=== PATIENT | male | born 1970 | race Caucasian/White ===

== ENCOUNTER → 2017-10-14 10:04 | Outpatient (CLI) | payer BC, SELFPAY ==
--- NOTE | 2017-10-14 08:04 | PCM.CR.ITP ---
General Information - General Information Admitting Diagnosis: PCI - Education/Goals Barriers to Learning: None Individual Counseling: Initial Assessment: Nicotine/Smoking, Abnormal Cholesterol Levels, Overweight/Obesity Cardiac Rehabilitation Goals: 1. Maintain the individual as the primary focus of care. 2. To improve the patient's quality of life. 3. Identification of cardiac risk factors and provide cardiac risk factor management. 4. Enhance the psychosocial status of the patient. 5. Reconditioning enough to allow the patient to resume customary activities. 6. Control symptoms of cardiac disease Scale for measuring improvement of personal goals: Enter appropriate number in Comments. 2 = Unchanged. 3 = Slightly Better. 4 = Moderate Improvement. 5 = Met my Goal Personal Goals: Initial Assessment: Improve knowledge of cardiac disease, Control risk factors (learn risk factor modification) Nutrition - Initial Assessment - Program Goals Nutrition Program Goals: LDL <70. Total Cholesterol <200. HDL >45. Triglycerides <150. HgbA1C <7%. BMI <25 - Visit Date of Assessment:: 10/14/17 - Stages of Change Stages of Change:: Action - Diabetes Diabetes:: No - Weight Management Height: 1.75 m Weight:: 80.739 kg Weight Goal (kg):: 72.575 kg Goal % Body Fat:: 24 - Intervention Referral to dietitian:: No Referral to Diabetic Clinic:: No Will attend diet classes:: Yes - Education Gave educational materials for:: Healthy eating Tobacco - Initial Assessment - Program Goals Tobacco Program Goals: Complete smoking cessation. Attend education classes. Improve Knowledge Test score - Stage of Change Stages of Change:: Action - Learning Barriers Learning Barriers: Ready to Learn - Family Support Do you have family support?: Yes - Tobacco Use Tobacco Use: Cigarettes How long ago did you quit using tobacco products?: Less than 6 months ago How many cigarettes do you smoke per day?: 20 Years Smokin Do you use smokeless tobacco?: No - Intervention Smoking Cessation Referral:: Yes Individual Education/Counseling:: Yes Education Schedule Given:: Yes - Education Gave educational material for:: Tobacco triggers, Coronary artery disease, Risk factors, Sexuality, Medical compliance, Cardiac A&P, Angina signs & symptoms Psychosocial - Initial Assess - Target Goals Target Goals: Assess presence or absence of depression. Using a valid screening tool, maximizes coping skills. Positive support system - Stages of Change Stages of Change:: Action - Psychosocial Test Tool Used:: HANDS Depression Questionnaire Self-reported stress:: no Total Mood Screening Score:: 2 Self-Efficacy Score:: 9 - Intervention PS - Interventions: Yes Attend Stress Management Classes, Yes Uses Stress Management Skills, No Referral to Mental Health, No Referral to [facility] Case Management, No Referral to Physician - Education Gave educational materials for:: Coping techniques, Signs & symptoms of depression, Stress management, Relaxation techniques - Patient/Program Goal Preventative Medication(s):: Aspirin, CORNEL inhibitor, Clopidogrel, Beta kusum, Statin/lipid - Assistive Devices Assistive Devices:: None Fall Risk Assessed:: Yes Patient Health Questionnaire Initial Assessment 1. Little interest or pleasure in doing things: Not at all 2. Feeling down, depressed, or hopeless: Not at all 3. Trouble falling or staying asleep, or sleeping too much: Not at all 4. Feeling tired or having little energy: Not at all 5. Poor appetite or overeating: Not at all 6. Feeling bad about yourself -- or that you are a failure or have let yourself or your family down: Not at all 7. Trouble concentrating on things, such as reading the newspaper or watching television: Several days 8. Moving or speaking so slowly that other people could have noticed. Or the opposite - being so fidgety or restless that you have been moving around a lot more than usual: Several days 9. Thoughts that you would be better off , or of hurting yourself in some way: Not at all How difficult have these problems made it for you to do your work, take care of things at home, or get along with other people?: Not difficult at all Total Score: 2 NEIL-Q SV Test - Statements CAD is a disease of the arteries in the heart: True Examples of risk factors for heart disease: False Angina is chest pain or discomfort: True The benefits of resistance training include: I Don't Know Eating more meat and dairy products: True Anti-platelet medications such as aspirin are important: True The only effective way to manage stress: True An exercise warm-up slowly increases heart rate: True Prepared, processed foods usually have high sodium: I Don't Know Depression is common after a heart attack: True The statin medications lower cholesterol: True To control blood pressure, lower the amount of sodium: True If someone gets chest discomfort during walking: True Transfats are partially hydrogenated vegetable oils: I Don't Know Sleep apnea that is not treated increases the risk: I Don't Know To control cholesterol, one should become a vegetarian: False Someone knows if he/she is exercising at the right level: True Diabetes cannot be prevented with exercise & health eating: False Stress is a large risk for heart attack: True A diet that can help lower blood pressure is rich in: True - Total Score Total Correct Responses: 11 Self-Efficacy Initial Assessment We would like to know how confident you are in doing certain activities. Please select your confidence level for:: Select your confidence level for the following using the scale 1-10 where 1 is not at all confident and 10 is totally confident. Your score is the average of all 6 responses. Fatigue: How confident are you that you can keep the fatigue caused by your disease from interfering with the things you want to do? Select Number: 6 Physical Discomfort or Pain: How confident are you that you can keep the physical discomfort or pain of your disease from interfering with the things you want to do? Select Number: 9 Emotional Distress: How confident are you that you can keep the emotional distress caused by your disease from interfering with the things you want to do? Select Number: 10 Other Symptoms or Health Problems: How confident are you that you can keep other symptoms or health problems from interfering with the things you want to do? Select Number: 10 Different Tasks and Activities: How confident are you that you can do the different tasks and activities needed to manage your health condition so as to reduce your need to see a doctor? Select Number: 9 Medication: How confident are you that you can do things other than just taking medication to reduce how much your illness affects your everyday life? Select Number: 10 Total Score:: 9 Nutrition Survey - Nutrition Survey Instructions Scoring Instructions: Scoring is as follows: Yes = 1 points. No = 0 point. Patient score that is >/=12 is considered to be at potential nutritional risk and could benefit from a referral to a registered dietitian. - Nutrition Survey Initial Have you lost >10 lbs over the past 2 months without trying?: No Are you following a special diet at home for diabetes, low fat, or low salt?: No Are you interested in meeting with a dietitian for help understanding your diet?: No Do you eat less than 3 meals a day?: Yes Do you eat fatty meats (lino, sausage, ribs, etc), fried foods, desserts, large amounts of salad dressings, margarine, butter, or cheese most days?: Yes Do you have food allergies? [Enter types in comment field]: No Do you eat in restaurants more than 3 times a week?: No Do you season food with salt, seasoning salt, or garlic salt?: Yes Do you used canned, boxed, frozen meals, or soups, seasoning packets?: Yes Total Score:: 4
--- NOTE | 2017-10-14 08:05 | PCM.CR.HP2 ---
CR - History & Physical - General Arrival date:: 10/14/17 Arrival time:: 08:05 Date of Referral:: 10/14/17 Date of CR Evaluation:: 10/14/17 Referring Physician: Dr. Hackett Primary Diagnosis: PCI - History of Present Cardiac Event Onset Date: Enter Onset Date of cardiac illnesses in Comment field below Current stable Angina Pectoris:: No Acute Myocardial Infarction within 12 months:: Yes Coronary Artery Bypass Graft:: No Heart valve replacement or repair:: No PTCA or coronary stenting:: Yes - 09/23/17 Heart or Heart-Lung Transplant:: No Heart Failure EF <35%:: No Type of Symptoms:: Sharp left chest pain. Interventions with present event:: PCI with stent. Were there any complications?: no - Medications Home Medications: Ambulatory Orders Medication Instructions Recorded Aspirin [Lo-Dose Aspirin EC] 81 mg PO DAILY 10/14/17 Atorvastatin Calcium [Lipitor] 40 mg PO QHS 10/14/17 Isosorbide Mononitrate [Imdur] 120 mg PO DAILY 10/14/17 Metoprolol Tartrate [Lopressor 50 mg PO BID 10/14/17 (Beta Cici)] Nicotine [Nicotine Patch] 1 each TD DAILY 10/14/17 Nitroglycerin [Nitrostat] 0.4 mg SL PRN PRN 10/14/17 Ranolazine [Ranexa] 500 mg PO BID 10/14/17 Ticagrelor [Brilinta] 90 mg PO BID 10/14/17 - Allergies Allergies/Adverse Reactions: Allergies No Known Allergies Allergy (Verified 11/09/15 15:42) - Sleep Disorder Evaluation Hx of Sleep Apnea: No Do you snore loudly (louder than talking or can be heard through closed doors)?: No Do you often feel tired/ fatigued/ sleepy during daytime?: No Has anyone observed you stop breathing during sleep?: No History of Hypertension (for STOP score): No STOP Results: Negative Advanced Directives - Advanced Directives Power of Scientific Programmer: No Living Will: No Advance Directives Information Provided: Yes Advance Directives on File: No DNR Order?:: No Past Medical History - Past Surgical History Surgical History: no surgical history - Family History Summary Family History: Family History (Last Updated 10/14/17 @ 08:16 by Alexander Hodge RN) Other father Social History - Smoking History Smoking Status: Former smoker - quit 09/23/17, also is working with insurance smoking cessation person daily. Years Smokin Packs Smoked per Day: 1 Hx Smoking Cessation Date: 09/23/17 Hx Smoking Exposure: Yes - at home and work, but leaves if someone is smoking. - Alcohol Use Alcohol Usage: No - Substance Abuse Hx Substance Use: No - Occupation Occupation (List type of work in comments):: Employed Hours worked per day:: 40 - lifts ~ 35 lbs at work Returned to work on:: 09/26/17 - Hobbies, Recreation, Social Activities Hobbies: None Recreational Activities: I am able to engage in all my recreational activities Social Environment - Status Marital Status: - Current Living Arrangements Living Environment:: Spouse - Children How many children do you have?: 2 Do any of your children live nearby?: Yes - Safety Do you feel safe in your surroundings?: Yes - Assistance Do you need any assistance at home?: no Review of Systems - Review of Systems Hints: Right click = Denies (Slash). Left click = Reports ([place]) Review of Present Symptoms: Reports: Appetite - Normal, Appetite - Special Diet - cardiac, Sleep - Normal. Denies: Shortness of Breath at Rest, Shortness of Breath with Exertion, PVD, Operative Discomfort, Angina, Wound Healing, Dizziness/Lightheadedness, Fatigue, Heart Arrhythmia/Irregularities, Sexual Changes - Pain Is Patient Pain Free?: Yes Risk Factor Assessment - Chief Complaint Chief Complaint: PCI - Pulse Pulse Rate: 72 Pulse Rhythm: Regular - Hypertension Blood Pressure Sitting - Right Arm: 110/72 Blood Pressure Sitting - Left Arm: 118/60 - Diabetes Nutrition Referral for Diabetes: No - Obesity Height: 1.75 m Weight:: 80.739 kg Weight in Pounds: 178.0 lbs Weight Source: Stated by Patient Body Mass Index (BMI): 26.2 Desired Body Weight: 160 Realistic Weight Goal (Loss of 1-2 lbs/week): 160 Nutritional Referral for Obesity: No - Physical Inactivity Physical Inactivity: Reg Exercise 30 min/day, Physically demanding job, Recreational activity - Risk Stratification Risk Guidelines: Lowest Risk: Risk Factor for Diabetes, Risk Factor for Hypertension, Risk Factor for Sedentary Lifestyle, Risk Factor for Depression, Moderate Risk: Risk Factor for Dyslipidemia, Risk Factor for Obesity, Highest Risk: Risk Factor for Smoking - For Smoking Smoking Risk Guidelines: Smoking Low Risk: None or quit greater than 6 months ago. Smoking Moderate Risk: Smoker or quit 6 months or less ago. Smoking High Risk: Smoker - For Dyslipidemia Dyslipidemia Risk Guidelines: Low Risk: Moderate Risk: High Risk: 15-25% fat 25.1-29% fat >/= 30% fat. <7% sat fat 7-9% sat fat >9% sat fat. <150 mg chol 150-299 mg chol >/= 300 mg chol. LDL <100 LDL 100-129 LDL >/= 130. Chol/HDL ratio <5.0 Chol/HDL ratio 5.0-6.0 Chol/HDL ratio >6.0. Triglycerides <100 Triglycerides 100-149 Triglycerides >/= 150 - For Diabetes Mellitus Diabetes Risk Guidelines: Diabetes Low Risk: HgA1c <6.5% and/or FBG <120. Diabetes Moderate Risk: HgA1c 6.6-7.9% and/or FBG 120-180. Diabetes High Risk: HgA1c >/= 8% and/or FBG >180 - For Obesity/Overweight Obesity/Overweight Risk Guidelines: Obesity Low Risk: BMI <25.0. Obesity Moderate Risk: BMI 25-29.9. Obesity High Risk: BMI >/= 30.0 - For Hypertension Hypertension Risk Guidelines: Hypertension Low Risk: Systolic <120 and Diastolic <80. Hypertension Moderate Risk: Systolic 120-139 and Diastolic 80-89. Hypertension High Risk: Systolic >/= 140 and Diastolic >/= 90 - For Sedentary Lifestyle Sedentary Lifestyle Risk Guidelines: Sedentary Lifestyle Low Risk: >/= 1,500 kcal/week. Sedentary Lifestyle Moderate Risk: 700-1,499 kcal/week. Sedentary Lifestyle High Risk: < 700 kcal/week - For Depression Depression Risk Guidelines: Depression Low Risk: Not clinically depressed. Depression Moderate Risk: Mildly depressed. Depression High Risk: Clinically depressed - Family History Family History: Family History (Last Updated 10/14/17 @ 08:16 by Alexander Hodge RN) Other father Motivation - Motivation to Participate On a scale of 1 to 10, how prepared are you to commit to attending program?: 10
[2017-10-14 09:12] VITALS: BP 110/72; BP 118/60; PULSE 72; BMI 26.2
== END ==
PROVIDERS: Family Provider Nurse Practitioner Family; PCP Nurse Practitioner Family
DX: Z95.5 Presence of coronary angioplasty implant and graft (principal)

== ENCOUNTER 2017-10-17 10:47 | Outpatient (RCR) | payer BC, SELFPAY | END 2017-10-21 23:59 | LOC: CR 10:47 | PROVIDERS: Family Provider Nurse Practitioner Family; PCP Nurse Practitioner Family | DX: Z95.5 Presence of coronary angioplasty implant and graft (principal) ==

== ENCOUNTER 2017-10-26 10:05 | Outpatient (RCR) | payer BC, SELFPAY | END 2017-11-20 23:59 | LOC: CR 10:05 | PROVIDERS: Family Provider Nurse Practitioner Family; PCP Nurse Practitioner Family | DX: Z95.5 Presence of coronary angioplasty implant and graft (principal) | CPT/HCPCS: 93798 ==

== ENCOUNTER 2019-01-28 19:42 | Emergency (ER) | payer BC, SELFPAY ==
[2019-01-28 19:44] VITALS: BP 111/78; PULSE 103; PULSE 105; RESP 15; RESP 17; TEMP 36.4; O2SAT 96; BMI 28.1
--- NOTE | 2019-01-28 19:58 | ED.VISSUMM ---
- ER Visit Summary Date of Service: 01/28/19 Chief Complaint: Forearm skin lesion History of Present Illness: The patient is a 49 M smoker history of coronary disease with cardiac stent. States he has a mole or something on his left forearm he has no idea how long it is been there is 1 to make sure without an abscess. Denies fever or chills. No red streaks. No drainage. No trauma. Physical Examination: Middle-aged male no acute distress vital signs stable afebrile. HEENT exam unremarkable. Spelt medical. Lungs clear to auscultation. Heart regular rhythm no murmur. Abdomen soft nontender. Extremities moves all 4. Neurovascular intact. No edema. The dorsum of his left forearm midportion there are 2 skin lesions that he had a scar tissue possibly a mole or granulomatous tissue. It is not an abscess. It is not a cyst. It is not fluctuant. There is no drainage or discharge. There is no lymphangitic streaking. There is no axillary lymphadenopathy. It is not tender. It is firm. Left hand is neurovascular intact. His left forearm from welding. Test Results: None Emergency Department Course and Treatment: This appears to be mole or scar tissue. There is nothing to drain at this time. Is not an abscess. Is not infected. Explained to the patient he needs to follow-up with a superintendent of generation and they can diagnosis and or biopsy it or remove it. But that does not need to be done in the emergency department. Treatment Plan: Follow-up with superintendent of generation. Stop smoking. Disposition: Discharge Impression: Left forearm skin lesion uncertain etiology This note was generated with [employer] dictation software. It may contain incorrect words, spelling, and punctuation that were not noted in review of the chart prior to signing ED Disposition - Plan for ED Patient: Referrals: Cesar Chin, KATIA-C [Primary Care Provider] -
--- NOTE | 2019-01-28 20:01 | DCINST.ED_ITS ---
ED Disposition - Plan for ED Patient: Disposition: Home or Assisted Living Referrals: Cesar Chin, KATIA-C [Primary Care Provider] - As Needed Lucretia Cuevas [NON-STAFF] - As soon as possible Additional Instructions: Call and follow-up with the used car make ready worker Dr. Lucretia Cuevas. She can evaluate your left arm make a diagnosis and/or remove those from your forearm or do a skin biopsy. Stop smoking.
== END 2019-01-28 20:15 | disposition home or self-care (01) ==
LOC: ED 20:10
PROVIDERS: Emergency Provider Emergency Medicine; Family Provider Nurse Practitioner Family; PCP Nurse Practitioner Family
DX: L98.9 Disorder of the skin and subcutaneous tissue, unspecified (principal); F17.200 Nicotine dependence, unspecified, uncomplicated; I25.10 Atherosclerotic heart disease of native coronary artery without angina pectoris; Z95.5 Presence of coronary angioplasty implant and graft; Z79.82 Long term (current) use of aspirin
CPT/HCPCS: 99282

== ENCOUNTER 2019-06-19 23:12 | Emergency (ER) | payer BC, SELFPAY ==
[2019-06-19 23:14] VITALS: BP 115/78; PULSE 67; RESP 20; TEMP 36.7; O2SAT 98; BMI 24.0
--- NOTE | 2019-06-19 23:29 | ED.DCSUM_ITS ---
History of Present Illness Chief Complaint: Mental Health Informant: Patient, Hha, - - [facility] deputy Narrative: Patient arrives via EMS and escorted by [facility]'s office. [place] slip was provided by the [facility]'s department. Patient apparently was sending messages to family member stating that he was done. He was making statements he went to go see his mom who is . He apparently threw away all his medication stating that this would just help him be done. Patient now states that he made statements that he went to go see his mom's grave, not go see his mom. He does admit to throwing his medication away earlier today. He does admit to drinking today. Patient states that he was seen by the counseling center couple months ago for suicidal ideation. They started him on some medication. This is one of the medications that he threw away earlier today. - Past Medical History (1) Hypertension Status: Chronic (2) Myocardial infarction Status: Chronic (3) H/O heart artery stent Status: Chronic (4) COPD (chronic obstructive pulmonary disease) Status: Chronic (5) GERD (gastroesophageal reflux disease) Status: Chronic (6) Depression Status: Chronic Past Medical History - Allergies and Home Meds Allergies/Adverse Reactions: Allergies No Known Allergies Allergy (Verified 06/19/19 23:14) Primary Care Physician: Cesar Chin NP-C [Primary Care Provider] - Prior records reviewed: Yes Surgical History: no surgical history Lives: Alone, - - Currently staying alone at a local motel Smoking Status: Current every day smoker Review of Systems General: Denies: Chills, Fever Eyes: Denies: Visual changes - bilaterally ENT: Denies: Bilateral ear pain Cardiovascular: Denies: Chest pain Respiratory: Denies: Dyspnea, Cough Gastrointestinal: Denies: Abdominal pain, Nausea, Vomiting, Diarrhea Genitourinary: Denies: Dysuria Musculoskeletal: Denies: Extremity Pain Skin: Denies: Rash Neurological: Denies: Headache Psych: Reports: Depression Hematologic: Denies: Easy bruising, Easy bleeding Allergy: Denies: Uticaria Physical Exam Vital Signs/Narrative: Vital Signs Temp Pulse Resp BP Pulse Ox 06/19/19 23:14 98.0 F 67 20 H 115/78 98 Inital Vital Signs reviewed: Yes General: Well nourished, Well developed Head: Normocephalic ENT: Moist mucous membranes Neck: Supple Cardiovascular: Regular rate, Regular rhythm Respiratory: No distress, CTA bilaterally Abdomen: Soft, Nontender, Normal bowel sounds Extremities: Nontender Skin: Normal color Neurological: Alert, Oriented x3 Psychological: - - Patient currently denies suicidal plan. He states that he would never actually hurt himself. He does admit to having suicidal thoughts in the past and had been on medication. Diagnostic/Tx/Re-eval Laboratory Results 06/19/19 06/19/19 06/19/19 23:40 23:40 23:40 WBC 9.3 RBC 5.44 Hgb 16.7 H Hct 47.9 MCV 88.1 MCH 30.7 MCHC 34.9 RDW Std Deviation 42.1 RDW Coeff of Brie 13.1 Plt Count 198 MPV 9.6 Immature Gran % (Auto) 0.300 Neut % (Auto) 53.6 Lymph % (Auto) 34.4 [place]cock % (Auto) 9.6 Eos % (Auto) 1.3 Baso % (Auto) 0.8 Absolute Neuts (auto) 5.0 Absolute Lymphs (auto) 3.18 Nucleated RBC % 0 Sodium 140 Potassium 3.2 L Chloride 109 H Carbon Dioxide 24.0 Anion Gap 7 BUN 5 L Creatinine 0.77 Estim Creat Clear Calc 114.77 Est GFR (MDRD) Af Amer 137 Est GFR (MDRD) Non-Af 114 BUN/Creatinine Ratio 6.5 L Glucose 111 H Calcium 8.4 L Urine Opiates Screen Urine Methadone Screen Ur Barbiturates Screen Ur Phencyclidine Scrn Ur Amphetamines Screen U Methamphetamin-MDMA U Benzodiazepines Scrn Urine Cocaine Screen U Cannabinoids Screen Ur Drug Screen Comment Ethyl Alcohol 208.0 06/20/19 06/20/19 05:07 05:07 WBC RBC Hgb Hct MCV MCH MCHC RDW Std Deviation RDW Coeff of Brie Plt Count MPV Immature Gran % (Auto) Neut % (Auto) Lymph % (Auto) Glasscock % (Auto) Eos % (Auto) Baso % (Auto) Absolute Neuts (auto) Absolute Lymphs (auto) Nucleated RBC % Sodium Potassium Chloride Carbon Dioxide Anion Gap BUN Creatinine Estim Creat Clear Calc Est GFR (MDRD) Af Amer Est GFR (MDRD) Non-Af BUN/Creatinine Ratio Glucose Calcium Urine Opiates Screen NEGATIVE Urine Methadone Screen NEGATIVE Ur Barbiturates Screen NEGATIVE Ur Phencyclidine Scrn NEGATIVE Ur Amphetamines Screen NEGATIVE U Methamphetamin-MDMA NEGATIVE U Benzodiazepines Scrn NEGATIVE Urine Cocaine Screen NEGATIVE U Cannabinoids Screen NEGATIVE Ur Drug Screen Comment Ethyl Alcohol 124.0 - Medical Decision Making Patient denies suicidal ideation to me, however does admit to throwing away all of his medications. He is known to the counseling center. We will have the patient speak with crisis. Patient's alcohol level has been repeated. He is metabolizing at 15/h. Another repeat alcohol level will be drawn at 730 and crisis will be called at that time pending alcohol is less than 100. ED Disposition - Plan for ED Patient: Diagnosis: Alcohol intoxication Referrals: Cesar Chin NP-C [Primary Care Provider] -
[2019-06-19 23:45] LABS: Absolute Lymphocyte Count 3.18 X10^3/uL (0.83-4.51); Basophil# 0.07 X10^3/uL; Basophil% 0.8 % (0-1); Eosinophil# 0.12 X10^3/uL; Eosinophils% 1.3 % (0-5); Hematocrit 47.9 % (40-54); Hemoglobin 16.7 g/dL (13.0-16.5); Lymphocyte # 3.18 X10^3/ul (4.0); Lymphocyte % 34.4 % (19-41); Mean Corp Hgb Conc 34.9 g/dL (32-36); Mean Corpuscular Hgb 30.7 pg (27.0-32.0); Mean Corpuscular Volume 88.1 fL (80-94); Mean Platelet Vol. 9.6 fl (6.2-12.0); Monocyte# 0.89 X10^3/uL; Monocyte% 9.6 % (0-10); NRBC Flagged by Analyzer 0 % (0-5); Neutrophil # 4.96 X10^3/uL (2.7-7.7); Neutrophil % 53.6 % (47-70); Platelet Count 198 K/mm3 (150-450); RBC Distribution Width CV 13.1 % (11.6-14.6); RBC Distribution Width SD 42.1 fl (35.1-43.9); Red Blood Count 5.44 M/mm3 (4.6-6.2); White Blood Count 9.3 K/mm3 (4.4-11.0)
[2019-06-19 23:58] LABS: Anion Gap 7 (5-15); BUN 5 mg/dL (7-18); BUN/Creat Ratio 6.5 RATIO (10-20); Calcium,Total 8.4 mg/dL (8.5-10.1); Chloride 109 mmol/L (98-107); Creatinine, Serum 0.77 mg/dL (0.70-1.30); EST Glomerular Filtration Rate 114 mL/min (>60); Est Glom Filt Rate - Afr Amer 137 mL/min (>60); Estimated Creatinine Clearance 114.77 ml/min; Glucose 111 mg/dL (74-106); Potassium 3.2 mmol/L (3.5-5.1); Sodium Level 140 mmol/L (136-145)
[2019-06-20] VITALS (9 sets, daily range): BP systolic 103–122; BP diastolic 71–74; PULSE 81–90; RESP 12–20; O2SAT 96–98
[2019-06-20 05:30] LABS: Amphetamine Urine VISTA NEGATIVE (<1000 ng/mL); Barbiturate Urine VISTA NEGATIVE (< 200 ng/mL); Benzodiazepine Urine VISTA NEGATIVE (< 200 ng/mL); Cocaine Urine VISTA NEGATIVE (< 300 ng/mL); Ecstacy Urine VISTA NEGATIVE (< 500 ng/mL); Methadone Urine VISTA NEGATIVE (< 300 ng/mL); PCP Urine VISTA NEGATIVE (< 25 ng/mL); THC Urine VISTA NEGATIVE (< 50 ng/mL); Vista UDS pH Range 5
--- NOTE | 2019-06-20 08:14 | NURSING ---
CALLED CRISIS, WILL FAX CHART TO DONALD
--- NOTE | 2019-06-20 08:42 | ED.VISSUMM ---
- ER Visit Summary Date of Service: 06/20/19 Chief Complaint: [] History of Present Illness: The patient is a 49 M [] Physical Examination: [] Test Results: [] Emergency Department Course and Treatment: [] Treatment Plan: [] Disposition: [] Impression: [] This note was generated with [employer] dictation software. It may contain incorrect words, spelling, and punctuation that were not noted in review of the chart prior to signing ED Disposition - Plan for ED Patient: Disposition: [facility] Diagnosis: Alcohol intoxication, Depression, acute, Suicidal thoughts Instructions: ED Depression Referrals: Cesar Chin NP-C [Primary Care Provider] - Counseling,Center [GROUP OF PHYSICIANS] - Keep Vincenzo appointment
== END 2019-06-20 09:32 | disposition home or self-care (01) ==
PROVIDERS: Emergency Provider Emergency Medicine; PCP Nurse Practitioner Family
DX: F10.129 Alcohol abuse with intoxication, unspecified (principal); R45.851 Suicidal ideations; F32.9 Major depressive disorder, single episode, unspecified; I10 Essential (primary) hypertension; I25.2 Old myocardial infarction; J44.9 Chronic obstructive pulmonary disease, unspecified; K21.9 Gastro-esophageal reflux disease without esophagitis; F17.200 Nicotine dependence, unspecified, uncomplicated; Z95.5 Presence of coronary angioplasty implant and graft; Z79.82 Long term (current) use of aspirin; Y90.7 Blood alcohol level of 200-239 mg/100 ml
CPT/HCPCS: 80048; 80307; 80320; 85025; 99284; G0480

== ENCOUNTER 2019-10-02 00:54 | Emergency (ER) | payer BC, SELFPAY ==
[2019-10-02] VITALS (7 sets, daily range): BP systolic 92–130; BP diastolic 61–82; PULSE 84–89; RESP 18–20; TEMP 36.3; O2SAT 95–99; BMI 27.5
--- NOTE | 2019-10-02 01:07 | EKG12_ITS ---
Test Reason : CP Blood Pressure : / mmHG Vent. Rate : 086 BPM Atrial Rate : 086 BPM P-R Int : 136 ms QRS Dur : 102 ms QT Int : 376 ms P-R-T Axes : 054 -18 029 degrees QTc Int : 449 ms Normal sinus rhythm Incomplete right bundle branch block Borderline ECG Confirmed by JUAN F BERMUDEZ, SHADI ([id number]), staff editor NEDA MCNAIR ([id number]) on 10/03/2019 1:31:54 PM Referred By: JULIETTE Confirmed By:SHADI ROGEL MD
--- NOTE | 2019-10-02 01:07 | RAD_ITS ---
STUDY: X-RAY CHEST REASON FOR EXAM: Male, 49 years old patient felt shaky at work tonight with chest pressure. TECHNIQUE: Single AP portable view of the chest. COMPARISON: Chest radiograph dated 10/02/2010. FINDINGS: Cardiac monitoring leads are present. The lungs are clear and expanded. There is no demonstrated pleural abnormality. Normal size heart. Normal mediastinum and dot. Normal visualized pulmonary arteries. Normal visualized aortic arch and descending thoracic aorta. Normal visualized thoracic spine. Normal visualized ribs, clavicles, and shoulders. There is no demonstrated abnormality of the visualized soft tissue structures of the upper abdomen. RAD/Chest 1 View (Portable) IMPRESSION: No radiographic evidence of acute cardiopulmonary disease. Electronically Signed: Blanca Nam MD at 1:44 EDT , Service support ,
--- NOTE | 2019-10-02 01:08 | ED.VIS.CHEST ---
History of Present Illness Chief Complaint: Chest Other Informant: Patient Onset: Hours - 2 Activity at onset: Light Activity - at work, running a machine Timing: Continuous Quality: Pressure Location: Substernal Current Severity: Mild Maximum Severity: Moderate Worsened By: Nothing Relieved By: NTG - x1 PURCHASE ANALYST Associated Symptoms: Dyspnea, - - shaky/weak. Negative for: Nausea, Vomiting, Diaphoresis, Cough, Lightheadedness, Palpitations Narrative: Patient works as a machinist job setter, he has a history of heart disease and continues to smoke, started having chest pressure tonight with the light exertion that he was doing at work. He did not go away with rest but did improve significantly with 1 nitroglycerin that he took prior to arrival. He is compliant with his aspirin and Plavix, he had 1 stent placed in 2018. He sees Dr. Hackett, a childhood development teacher in [place]. Recent Illness/Hospitalization: No CVD Risk Factors: Hypertension, Hypercholesterolemia, Smoking. Negative for: Diabetes - Past Medical History (1) COPD (chronic obstructive pulmonary disease) Status: Chronic (2) Depression Status: Chronic (3) GERD (gastroesophageal reflux disease) Status: Chronic (4) Hypertension Status: Chronic (5) Myocardial infarction Status: Chronic Past Medical History - Allergies and Home Meds Allergies/Adverse Reactions: Allergies No Known Allergies Allergy (Verified 10/02/19 01:00) Primary Care Physician: Cesar Chin NP-C [Primary Care Provider] - Surgical History: - - Cardiac stent Smoking Status: Current every day smoker Drugs: None Review of Systems General: Reports: Malaise. Denies: Chills, Fever, Sweats Eyes: Denies: Visual changes - bilaterally, Diplopia ENT: Denies: Rhinorrhea, Sore throat Cardiovascular: Reports: Chest pain. Denies: Palpitations Respiratory: Reports: Dyspnea - Resolved. Denies: Cough, Dyspnea on exertion Gastrointestinal: Denies: Abdominal pain, Nausea, Vomiting, Diarrhea, Melena, Hematochezia Genitourinary: Denies: Dysuria, Hematuria, Frequency Musculoskeletal: Denies: Back pain, Swelling, Extremity Pain Skin: Denies: Rash, Wounds Neurological: Denies: Headache, Weakness, Numbness Physical Exam Vital Signs/Narrative: Vital Signs Temp Pulse Resp BP Pulse Ox 10/02/19 00:56 97.4 F L 89 18 130/82 H 99 Inital Vital Signs reviewed: Yes General: Well nourished, Well developed, No Acute Distress Head: Normocephalic, Atraumatic Eyes: Perrl, EOMI ENT: Moist mucous membranes, No rhinorrhea Neck: Supple, Nontender, No JVD Cardiovascular: Regular rate, Regular rhythm, No murmurs, - - Equal bilateral radial 2+/4 pulses Respiratory: No distress, CTA bilaterally, Chest nontender Abdomen: Soft, Nontender, Nondistended, Normal bowel sounds Back: Nontender, Normal Inspection Extremities: Nontender, No edema. Negative for: Calf Tenderness Skin: Normal color, No rash, No Trauma Neurological: Alert, Oriented x3, Cranial nerves II-XII grossly intact, Normal Strength, Normal Sensation Psychological: Normal affect, Normal Mood Diagnostic/Tx/Re-eval Impressions Chest X-Ray 10/02/19 01:07 IMPRESSION: No radiographic evidence of acute cardiopulmonary disease. Electronically Signed: Blanca Nam MD at 1:44 EDT , Service support , 10/02/19 01:07 Chest 1 View (Portable) [RAD] Stat Laboratory Results 10/02/19 10/02/19 10/02/19 01:05 01:05 01:05 WBC 9.8 RBC 4.89 Hgb 15.0 Hct 44.4 MCV 90.8 MCH 30.7 MCHC 33.8 RDW Std Deviation 43.3 RDW Coeff of Brie 13.1 Plt Count 182 MPV 10.0 Immature Gran % (Auto) 0.300 Neut % (Auto) 51.3 Lymph % (Auto) 37.8 [place] % (Auto) 7.3 Eos % (Auto) 2.8 Baso % (Auto) 0.5 Absolute Neuts (auto) 5.0 Absolute Lymphs (auto) 3.71 Nucleated RBC % 0 APTT 27.6 Sodium 142 Potassium 3.6 Chloride 111 H Carbon Dioxide 26.0 Anion Gap 5 BUN 7 Creatinine 0.83 Estim Creat Clear Calc 106.48 Est GFR (MDRD) Af Amer 125 Est GFR (MDRD) Non-Af 104 BUN/Creatinine Ratio 8.4 L Glucose 99 Calcium 8.7 Troponin I < 0.015 - Rhythm Strip Rhythm Strip: Sinus Rhythm Rate: 86 Ectopy: None - EKG Initial EKG Interpretation: Sinus Rhythm, No Acute Injury Pattern, RBBB - incomplete, Non-Specific ST Changes - inferiorly; no st depressions or elevations to suggest acute injury Treatment: Aspirin, NTG SL, NTG Topical Repeat Eval: Pain Free DAISY Risk: >/= 3RF, H/O CAD, ASA within 7 days Score: 3 - Medical Decision Making After 2 nitroglycerin the patient is [id number]. Nitroglycerin paste was placed on his chest. His work-up so far is negative, however his symptoms are very concerning and I am unable to rule out unstable angina. I recommended admission to the hospital but the patient wants to leave now. We discussed other options including a delta troponin, however he does not want to stay any longer. He understands the risk if he has a tight coronary lesion that could be giving him unstable angina without STEMI at this time, that it could result in a STEMI if he is not admitted to the hospital. He understands that this could result in disability or . He understands that and wants to leave AGAINST MEDICAL ADVICE anyway. His was present for most of this conversation. He states he plans on calling his childhood development teacher tomorrow, I advised him that if he changes his mind he is welcome to return at any time which I would encourage him to do. ED Disposition - Plan for ED Patient: Disposition: Against Medical Advice Diagnosis: Chest pain, unspecified, CAD (coronary artery disease) Instructions: ED Chest Pain Atypical [place], [place] Form- 1 Referrals: Cesar Chin, KATIA-C [Primary Care Provider] - Dr. Roxann [Other] (omer)
[2019-10-02 01:13] LABS: Absolute Lymphocyte Count 3.71 X10^3/uL (0.83-4.51); Basophil# 0.05 X10^3/uL; Basophil% 0.5 % (0-1); Eosinophil# 0.27 X10^3/uL; Eosinophils% 2.8 % (0-5); Hematocrit 44.4 % (40-54); Lymphocyte # 3.71 X10^3/ul (4.0); Lymphocyte % 37.8 % (19-41); Mean Corp Hgb Conc 33.8 g/dL (32-36); Mean Corpuscular Hgb 30.7 pg (27.0-32.0); Mean Corpuscular Volume 90.8 fL (80-94); Monocyte# 0.72 X10^3/uL; Monocyte% 7.3 % (0-10); NRBC Flagged by Analyzer 0 % (0-5); Neutrophil # 5.03 X10^3/uL (2.7-7.7); Neutrophil % 51.3 % (47-70); Platelet Count 182 K/mm3 (150-450); RBC Distribution Width CV 13.1 % (11.6-14.6); RBC Distribution Width SD 43.3 fl (35.1-43.9); Red Blood Count 4.89 M/mm3 (4.6-6.2); White Blood Count 9.8 K/mm3 (4.4-11.0)
[2019-10-02] MEDS: Aspirin 81 MG TAB.CHEW 324 MG PO (01:22)
[2019-10-02] MEDS: 0.9% Normal Saline 1,000 ML 150 ML IV (01:24)
[2019-10-02 01:30] LABS: Partial Thromboplast Time 27.6 Seconds (24.1-36.2)
[2019-10-02 01:36] LABS: Anion Gap 5 (5-15); BUN 7 mg/dL (7-18); BUN/Creat Ratio 8.4 RATIO (10-20); Calcium,Total 8.7 mg/dL (8.5-10.1); Chloride 111 mmol/L (98-107); Creatinine, Serum 0.83 mg/dL (0.70-1.30); EST Glomerular Filtration Rate 104 mL/min (>60); Est Glom Filt Rate - Afr Amer 125 mL/min (>60); Estimated Creatinine Clearance 106.48 ml/min; Glucose 99 mg/dL (74-106); Potassium 3.6 mmol/L (3.5-5.1); Sodium Level 142 mmol/L (136-145)
[2019-10-02] MEDS: Nitroglycerin SL (ED/IMG/CATH) 0.4 MG TABLET SUBLINGUAL ×2 (01:59→02:04)
--- NOTE | 2019-10-02 02:24 | ED.RN ---
AMA form signed, pt received a copy. All questions answered, no further concerns.
== END 2019-10-02 02:24 | disposition left against medical advice (07) ==
PROVIDERS: Emergency Provider Emergency Medicine; PCP Nurse Practitioner Family
DX: R07.9 Chest pain, unspecified (principal); I25.10 Atherosclerotic heart disease of native coronary artery without angina pectoris; E78.00 Pure hypercholesterolemia, unspecified; I10 Essential (primary) hypertension; F32.9 Major depressive disorder, single episode, unspecified; Z95.5 Presence of coronary angioplasty implant and graft; Z79.02 Long term (current) use of antithrombotics/antiplatelets; Z79.82 Long term (current) use of aspirin
CPT/HCPCS: 71045; 80048; 84484; 85025; 85730; 93005; 99285; J7030

== ENCOUNTER 2022-10-02 20:54 | Emergency (ER) | payer BC, SELFPAY ==
[2022-10-02 20:56] VITALS: BP 131/78; PULSE 94; RESP 20; TEMP 36.6; O2SAT 99; BMI 27.8
--- NOTE | 2022-10-02 21:08 | ED.VIS.LOWEX ---
HPI History of Present Illness HPI Narrative: Patient presents with left hip pain that began yesterday. Patient states it is gradually gotten worse. Patient states it is worse with weightbearing. Patient describes it as stabbing. Patient states it is mainly over the posterior lateral aspect of his left hip. Patient states it goes down his leg when he ambulates. Patient denies any paresthesias or weakness. Patient denies any trauma or injury. Patient denies any fevers or chills. Chief Complaint: Lower Extremity Injury Informant: patient Onset/Context/Timing Onset: Yesterday Context: Gradual Onset Timing: Continuous Quality of Pain: Stabbing Location: Left hip Worsened by: Weightbearing Relieved by: Nothing Associated Symptoms Associated Symptoms: Negative for Parasthesia, Weakness or Loss of Funtion PFSH PFS Medical History (Updated 10/02/22 @ 22:[address] Dakota Henry DO) COPD (chronic obstructive pulmonary disease) Depression GERD (gastroesophageal reflux disease) Hypertension Myocardial infarction Home Medications aspirin 81 mg tablet,delayed release (Lo-Dose Aspirin) 81 mg PO DAILY 10/14/17 [History Last Taken Unknown] amlodipine 10 mg tablet 10 mg PO DAILY 10/02/19 [History Last Taken Unknown] atorvastatin 40 mg tablet 1 tab PO DAILY 10/02/19 [History Last Taken Unknown] clopidogrel 75 mg tablet 75 mg PO DAILY 10/02/19 [History Last Taken Unknown] isosorbide mononitrate 120 mg tablet,extended release 24 hr 1 tab PO DAILY 10/02/19 [History Last Taken Unknown] metoprolol succinate 100 mg tablet,extended release 24 hr 100 mg PO DAILY 10/02/19 [History Last Taken Unknown] sertraline 50 mg tablet 50 mg PO DAILY 10/02/19 [History Last Taken Unknown] hydrocodone-acetaminophen 5-325mg 5mg-325mg 1 tab PO Q6H PRN PRN Pain 3 days #10 TABLETS 10/02/22 [Rx Last Taken Unknown] Allergy/AdvReac Type Severity Reaction Status Date / Time No Known Allergies Allergy Verified 10/02/22 20:56 Family History (Updated 10/14/17 @ 08:16 by Alexander Hodge RN) Other father Surgical History (Updated 10/02/22 @ 21:[address] Dakota Henry DO) H/O heart artery stent Social History Smoking Status: Current every day smoker tobacco type: cigarettes ROS ROS ED Constitutional Constitutional ED: Denies chills or fever(s) Eyes Eyes: Denies blurry vision or change in vision ENT ENT ED: Denies rhinorrhea or sore throat Cardiovascular Cardiovascular: Denies chest pain or palpitations Respiratory/Chest Respiratory/Chest: Denies cough or dyspnea Gastrointestinal Gastrointestinal: Denies nausea or vomiting Genitourinary Genitourinary ED: Denies dysuria or hematuria Musculoskeletal Musculoskeletal: Denies back pain or neck pain Integumentary Denies abscess or rash Neurologic Neurologic: Denies headache(s) or weakness Allergic/Immunologic Allergic/Immunologic ED: Denies mouth swelling or urticaria EXAM Physical Exam Const Vital Signs: 10/02/22 20:56 Temperature 97.9 F Temperature Source Temporal Pulse Rate 94 Respiratory Rate 20 H Blood Pressure 131/78 H Blood Pressure Mean 95 Pulse Ox 99 Oxygen Delivery Method Room Air Positive well nourished and well developed General Appearance ED: well developed and NAD HEENT Reports moist mucous membranes Extremity Extremity Narrative: There is tenderness over the posterior and lateral aspects of the left hip. There is no obvious deformity noted. Range of motion was slightly limited in flexion and abduction of the left hip secondary to pain. There is minimal pain with internal and external rotation. There are no sensory deficits noted. Strength is 5/5 bilaterally in the lower extremities. Straight leg raises were negative bilaterally. General Extremety ED: Yes weight-bearing difficulty General Extremity: weight-bearing difficulty Neuro oriented x3, CN's II-XII intact bilaterally, moves all extremities and no sensory deficits noted Sensorium / Orientation: alert Motor Exam: strength 5/5 throughout Psych mental status grossly normal MDM MDM MDM Narrative Medical decision making narrative: Differential diagnosis includes sciatica, hip arthritis, muscle strain, and occult fracture. X-rays of the left hip will be obtained to assess for degenerative joint disease and occult fracture. Radiography Diagnostic Testing: Clinical Impression(s) from Imaging Studies Hip/Pelvis X-Ray 10/02/22 21:21 IMPRESSION: 1. No fracture or malalignment. 2. Mild degenerative changes. 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 Electronically Signed: Harry Henderson (Brooks), at 21:36 EDT Reading Location ID and State: [facility] / [place] , Service support , X-rays of the left hip were obtained. There are 3 views. On my independent interpretation, there is no acute fracture. There are mild degenerative changes noted. Radiologist also interpreted the x-rays and agrees. Treatment and Re-Evaluation Narrative: Patient was given a dose of [place] here. Patient is feeling better on reevaluation. Patient was advised of his findings. Patient was given a prescription for short course of [place]. Patient was instructed to follow-up with his primary care physician in 5 to 7 days. Patient understood and was agreeable with the plan. All questions were answered. Discharge Plan Triage Chief Complaint: Lower Extremity Injury ED Provider: Dakota Henry Dx/Rx/DC Orders Clinical Impression: Osteoarthritis of left hip Instructions: ED Hip Strain Prescriptions: New hydrocodone-acetaminophen [hydrocodone-acetaminophen] 5-325 mg tablet 1 tab PO Q6H PRN PRN (Reason: Pain) 3 Days Qty: 10 0RF No Action aspirin [Lo-Dose Aspirin] 81 MG tablet,delayed release (DR/EC) 81 mg PO DAILY atorvastatin 40 mg tablet 1 tab PO DAILY metoprolol succinate 100 MG tablet extended release 24 hr 100 mg PO DAILY clopidogrel 75 MG tablet 75 mg PO DAILY isosorbide mononitrate 120 mg tablet extended release 24 hr 1 tab PO DAILY amlodipine 10 MG tablet 10 mg PO DAILY sertraline 50 MG tablet 50 mg PO DAILY Primary Care Provider: Cesar Chin NP Referrals: Cesar Chin CERTIFIED SURGICAL FIRST ASSISTANT, CERTIFIED SURGICAL FIRST ASSISTANT-C [Primary Care Provider] - 5-7 Days Disposition Disposition: Home, Self Care
[2022-10-02] MEDS: HYDROcodone Bitartrate/Apap 5/325 Tablet PO (21:14)
--- NOTE | 2022-10-02 21:21 | RAD_ITS ---
STUDY: X-RAY - PELVIS AND LEFT HIP REASON FOR EXAM: Male, 52 years old. Injury/Pain TECHNIQUE: 3 views of the pelvis and hip. COMPARISON: None. FINDINGS: There is a non-specific bowel gas pattern. Normal visualized soft tissue structures. Normal bilateral iliac wings, sacroiliac joints and visualized sacrum. Normal bilateral superior and inferior pubic rami. Normal pubic symphysis. Normal bilateral ischial tuberosities. Cortical thickening at the junction of the left femoral head and neck (also seen on contralateral right side). There is osteoarthritic spur formation of the acetabular rim. Normal hip joint. RAD/HIP, UNI W/ Pelvis 2-3 Views IMPRESSION: 1. No fracture or malalignment. 2. Mild degenerative changes. 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 Electronically Signed: Harry Henderson (Brooks), at 21:36 EDT ,
== END 2022-10-02 22:11 | disposition home or self-care (01) ==
PROVIDERS: Emergency Provider Emergency Medicine; PCP Nurse Practitioner Family; Visit Provider Emergency Medicine
DX: M16.12 Unilateral primary osteoarthritis, left hip (principal); J44.9 Chronic obstructive pulmonary disease, unspecified; I10 Essential (primary) hypertension; F17.210 Nicotine dependence, cigarettes, uncomplicated
CPT/HCPCS: 73502; 99283